=== PATIENT | male | born 1990 | race Caucasian/White ===

== ENCOUNTER 2017-12-14 13:39 | Emergency (ER) | payer MEDICAID ==
[~2017-12-14] VITALS: Ht 185.4 cm; Wt 58.6 kg
[2017-12-14 14:01] VITALS: Ht 185.4 cm; Wt 58.6 kg
[2017-12-14 14:24] LABS: BASOPHILS 0.1 % (0-2); EOSINOPHILS 0.1 % (0-7); HEMOGLOBIN 16.9 g/dL (13.5-17.5); IMMATURE GRANULOCYTES 0.1 % (0-5); LYMPHOCYTES 7.1 % (15-50); MCH 31.4 pg (26.0-34.0); MCHC 35.2 g/dL (31.0-37.0); MCV 89.1 fL (80.0-100.0); MEAN PLATELET VOLUME 11.2 fL (7.4-10.4); MONOCYTES 5.8 % (2-11); NEUTROPHILS 86.8 % (40-80); PLATELET COUNT 189 10x3/uL (130-400); RBC 5.39 10x6/uL (4.20-6.10); RDW 12.3 % (11.5-14.5); WBC 11.4 10x3/uL (4.8-10.8)
[2017-12-14 14:49] LABS: APPEARANCE CLEAR (CLEAR); BILIRUBIN NEGATIVE (NEGATIVE); COLOR YELLOW (YELLOW); GLUCOSE NEGATIVE (NEGATIVE); KETONE MODERATE mg/dL (NEGATIVE); NITRITE NEGATIVE (NEGATIVE); PROTEIN 1+ mg/dL (NEGATIVE); UROBILINOGEN NORMAL (NORMAL)
[2017-12-14 14:52] LABS: BACTERIA MODERATE /hpf (NONE SEEN); EPITHELIAL CELLS 0-5 /hpf (0-5); MUCUS >1+ /lpf (NONE SEEN); RED CELLS - URINE 0-5 /hpf (0-5); WHITE CELLS - URINE 0-5 /hpf (0-5)
[2017-12-14 15:04] LABS: ALBUMIN 5.4 g/dL (3.4-5.0); ANION GAP 16.9 mmol/L (8-16); BILIRUBIN - TOTAL 0.96 mg/dL (0.2-1.3); CALCIUM 10.2 mg/dL (8.5-10.1); CARBON DIOXIDE 28.9 mmol/L (21.0-32.0); CREATININE - SERUM 1.3 mg/dL (0.6-1.3); POTASSIUM - SERUM 3.8 mmol/L (3.5-5.1); PROTEIN - SERUM 9.3 g/dL (6.4-8.2)
[2017-12-14] MEDS ORDERED: COMPAZINE10 MG PO (18:09)
[2017-12-14 18:37] VITALS: BP 112/68
== END 2017-12-14 18:38 | disposition home or self-care (01) ==
LOC: D.ER 13:39
PROVIDERS: Emergency Medicine
DX: R11.2 Nausea with vomiting, unspecified (principal); K52.9 Noninfective gastroenteritis and colitis, unspecified